=== PATIENT | female | born 1955 | race Caucasian/White ===

== ENCOUNTER 2018-01-05 05:38 | Observation (INO) ==
[2018-01-05] MEDS ORDERED: Metoprolol Tartrate 25 MG Tablet PO SCH (06:30)
[2018-01-05] MEDS ORDERED: Heparin - SQ 10,000 UNITS/ML Vial SQ SCH (06:30)
[2018-01-05] MEDS ORDERED: Chlorhexidine Gluconate 2% 1 Pack (2 Cloths) TOPICAL SCH (06:30)
[2018-01-05] MEDS ORDERED: Sodium Chlor 0.9% Inj 500 ML IV.SIG SCH (07:00)
[2018-01-05] MEDS ORDERED: Sugammadex Inj 200 MG/2 ML Vial IV.PUSH ONE (09:05)
[2018-01-05] MEDS ORDERED: Lidocaine 1%/Epinephrine 1:100,000 Inj 20 ML Vial INFILTRATN ONE ×2 (09:58→10:15)
[2018-01-05] MEDS ORDERED: LORazepam 0.5 MG Tablet PO PRN (10:45)
[2018-01-05] MEDS ORDERED: Morphine Inj 4 MG/ML Vial ONE (11:01)
[2018-01-05] MEDS ORDERED: fentaNYL Citrate Inj 100 MCG/2 ML Ampul ONE ×2 (11:01)
[2018-01-05] MEDS: KCL 20 mEq/D5W/NaCl 0.45% Inj 1,000 ML IV.CONT SCH ×3 (11:10→20:45)
[2018-01-05] MEDS ORDERED: *morphine SULFATE 4 MG/ML PERIprocedure ONLY ONE ×2 (11:16→11:51)
[2018-01-05] MEDS: Ketorolac Inj 30 MG/ML (IVP) Vial IV.PUSH SCH ×3 (11:31→23:44)
--- NOTE | 2018-01-05 12:41 | MP ---
cc: Anitra Lee MD, Zachary S MD Herdel, George DATE OF OPERATION: 01/05/2018 PREOPERATIVE DIAGNOSES: 1. 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 2. Postmenopausal bleeding. POSTOPERATIVE DIAGNOSES: 1. 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 2. Postmenopausal bleeding. PROCEDURE: Robotic-assisted laparoscopic hysterectomy, bilateral salpingo-oophorectomy. SURGEON: Anitra Lee MD CONDUIT HELPER: [place] 1st title assistant ANESTHESIA: General endotracheal anesthesia. ESTIMATED BLOOD LOSS: 150 mL IV FLUID: 1700 mL URINE OUTPUT: 550 mL HISTORY AND INDICATIONS: A 62-year-old female with postmenopausal bleeding, thickened endometrial stripe on ultrasound. Biopsy showed complex atypical hyperplasia bordering on endometrial cancer. She was counseled regarding these findings and presented with options. She is in favor of surgery via minimally invasive techniques and presents now for that endeavor. She is seen again in the preoperative holding area where findings are again a Questions were answered. She expressed good understanding and agreed. FINDINGS: The uterus sounded to 9 cm; grossly appeared normal, grossly the tubes and ovaries appeared normal. There were no obviously enlarged pelvic or periaortic lymph nodes. The peritoneal surfaces were smooth without evidence of peritoneal implants. The uterus, once removed, showed no evidence of invasive cancer. Frozen section of a leather goods sales representative area showed complex atypical hyperplasia, but did not show any obvious cancer. STATEMENT OF COMPLEXITY/MODIFIER: Complexity of this case was increased due to body habitus with a BMI of greater than 40 and modifier should be applied accordingly. DESCRIPTION OF PROCEDURE: She was taken to the operating room and placed in dorsal lithotomy position after general endotracheal anesthesia was administered. A timeout was undertaken. She was identified by site recognition and hospital ID bracelet and the proposed procedure was reviewed and confirmed. She was carefully positioned in padded Eric stirrups. Her arms were padded and secured to the sides. She was further secured to the operating table with egg crate padding and tape in a cross-chest over the shoulder fashion. All sites noted to be properly aligned with no malalignment or pressure points. She was prepped and draped in the usual sterile fashion and placed in the high lithotomy position. The cervix was grasped. Uterine cavity sounded, cervix dilated and a large VCare manipulator was inserted and secured in usual fashion. Carcamo catheter was placed in the bladder. She was returned to low lithotomy position. Change of sterile gloves was undertaken. We completed draping in anticipation of laparoscopy and confirmed that an orogastric tube was in the stomach on suction. On manual elevation of the abdominal wall and direct laparoscopic visualization a 5 mm cannula was introduced into the left upper quadrant in an atraumatic fashion. Carbon dioxide gas was insufflated and a 12 mm cannula was inserted in the midline above the umbilicus, 8 mm cannulas in the right upper quadrant and left lateral quadrant and the original 5 mm cannula exchanged for an 8 mm cannula. She was placed in Trendelenburg position. Peritoneal washings were obtained for cytology. The anatomy was surveyed with findings as described above. The small bowel was folded back on its mesenteric root and 3 Ray-Cyrus sponges were placed around the root of the small bowel mesentery. The robotic system was brought into the operative field and attached in the usual fashion. Monopolar scissors, fenestrated bipolar forceps and ProGrasp manipulators were placed in arms 1, 2, and 3 respectively and I took my place at the surgeon's console. Right round ligament was isolated, cauterized and transected. The anterior and posterior leaf of the broad ligament were opened. The right ureter was identified. The right infundibulopelvic ligament was isolated. The intervening peritoneum was opened. The infundibulopelvic ligament was isolated to the level of the pelvic brim where it was cauterized and transected. The posterior peritoneum was opened on the right side of the uterus and cervix and the right vesicouterine peritoneum dissected off the lower uterine segment and cervix. The right uterine vessels were skeletonized, cauterized and transected as were the cardinal, paracervical and uterosacral ligaments. Attention was directed toward the left side. Adhesions were taken down where the colon was adherent to the left pelvic sidewall. The left round ligament was isolated, cauterized, transected. The anterior and posterior leaves of the broad ligament were opened. The left ureter was identified. The left infundibulopelvic ligament was isolated to the level of the pelvic brim where it was cauterized and transected. Posterior peritoneum opened along the left side of the uterus and cervix and the left vesicouterine peritoneum dissected off the lower uterine segment and cervix. The left uterine vessels were skeletonized, cauterized and transected as were the cardinal, paracervical and uterosacral ligaments. Circumferential colpotomy was performed, the cervix from the upper vagina and the specimen was withdrawn transvaginally which included uterus, cervix, tubes and ovaries and a Pneumo-Occluder balloon was placed into the vagina to maintain pneumoperitoneum. Instruments 1 and 3 exchanged for needle drivers as an 0-Vicryl suture was introduced. The vaginal cuff was closed starting at the left corner; full-thickness closure, incorporating the edge of the uterosacral ligament and posterior peritoneum; tied via instrument tie. The running closure was held as a full-thickness running continuous closure was carried across the vaginal apex to the contralateral corner where it was similarly fixed, tied and secured. The needle was cut and removed. There was a good margin between the vaginal cuff and the bladder edge. Good peristalsis of ureters bilaterally. The pathology came back showing no invasive cancer and it was felt that all reasonable surgical objectives had been completed. The pelvis was thoroughly irrigated. Small bleeders rendered hemostatic with bipolar cautery. Randall hemostatic powder was placed across the vaginal cuff and at the lateral pelvic sidewalls. The robotic instruments were removed. The robotic system was disengaged from the operative field. I reentered the bedside under sterile condition. Each of the 3 Ray-Cyrus sponges were removed through the 12 mm cannula. They were removed individually and inspected, and noted to be removed in their entirety. Visual inspection confirmed there were no remaining foreign objects in the peritoneal cavity and preliminary counts were correct. The 12 mm cannula removed. The fascia was closed with interrupted 0-Vicryl sutures, which were tied securely, ____ the fascia completely air tight and hemostatic. The remaining cannulas were withdrawn. Carbon dioxide gas was removed; 3-0 Vicryl subcutaneous, 3-0 Vicryl subcuticular were used to close these incisions and Steri-Strips were placed over these incisions. She was returned to the dorsal lithotomy position. The vaginal cuff was well supported. There was a proximal vaginal laceration at the right corner of the vagina, which was rendered hemostatic and reapproximated with interrupted [id number] 2-0 Vicryl sutures. The vagina was irrigated, again inspected and noted to be hemostatic and to assist in continued hemostasis, Surgicel SNoW was packed across the vaginal cuff and upper vagina. She was returned to dorsal supine position. The preliminary and final counts were correct. She was pending reversal of anesthesia when I left the operating room to precede her to the postanesthesia care unit. MD ANASTACIO Paula/jess/santos , 11:45 AM , 12:00 PM SUGAR
[2018-01-05] MEDS ORDERED: Phenylephrine/NS 1000 MCG/10ML Syringe IV.PUSH ONE (14:41)
[2018-01-05] MEDS ORDERED: Sod Chloride 0.9% Inj 1,000 ML IV.SIG ONE (14:41)
[2018-01-05] MEDS ORDERED: Lidocaine PF 1% Inj 5 ML Syringe INFILTRATN ONE (14:41)
[2018-01-05] MEDS ORDERED: Glycopyrrolate Inj 1 MG/5 ML Syringe IV.PUSH ONE (14:41)
[2018-01-06] MEDS: Ketorolac Inj 30 MG/ML (IVP) Vial IV.PUSH SCH (06:22)
[2018-01-06 06:23] LABS: Baso % (Auto) 0.1 % (0.0-2.0); Eos % (Auto) 0.1 % (0.0-4.0); Hematocrit 38.5 % (35.0-46.0); Hemoglobin 12.7 gm/dL (11.6-15.3); Lymph # (Auto) 1.1 th/mm3 (1.0-4.8); Lymph % (Auto) 8.1 % (9.0-44.0); Mean Corpuscular HGB Conc 32.9 % (32.0-36.0); Mean Corpuscular Hemoglobin 30.6 pg (27.0-34.0); Mean Platelet Volume 8.7 fL (7.0-11.0); Mono # (Auto) 0.9 th/mm3 (0.0-0.9); Mono % (Auto) 6.3 % (0.0-8.0); Neut # (Auto) 11.6 th/mm3 (1.8-7.7); Neut % (Auto) 85.4 % (16.0-70.0); Platelet Count 227 th/mm3 (150-450); Red Blood Count 4.14 mil/mm3 (4.00-5.30); White Blood Count 13.6 th/mm3 (4.0-11.0)
[2018-01-06] MEDS: KCL 20 mEq/D5W/NaCl 0.45% Inj 1,000 ML IV.CONT SCH (06:40)
[2018-01-06 06:42] LABS: Calcium 7.9 mg/dL (8.5-10.1); Carbon Dioxide 27.7 meq/L (21.0-32.0)
[2018-01-06] MEDS ORDERED: Allopurinol 300 MG Tablet PO SCH (09:00)
--- NOTE | 2018-01-06 15:02 | MD ---
cc: Anitra Lee MD, George DATE OF DISCHARGE: PROCEDURE: On 01/05/2018, robotic-assisted laparoscopic hysterectomy, bilateral salpingo-oophorectomy. DIAGNOSIS: Complex atypical endometrial hyperplasia/grade 1 endometrial cancer. HOSPITAL COURSE: She did well in the early postop period; was hemodynamically stable, tolerating oral intake. Carcamo catheter removed pending voiding. Ins and outs: 6340/3075. LABORATORY DATA: Pending. PHYSICAL EXAMINATION: VITAL SIGNS: Afebrile, pulse 72, respirations 16, blood pressure 139/69, O2 saturations 96%, alert and oriented x3. LUNGS: Clear. CARDIOVASCULAR: Regular rate and rhythm. ABDOMEN: Soft. Incisions clean and dry. GYNECOLOGIC: No bleeding. ASSESSMENT: Postoperative day number 1, doing well in the early postop period. Findings at the time of surgery with preliminary pathology reviewed, activities and restrictions discussed. Questions were asked and answered. She expressed good understanding. PLAN: I anticipate she will meet criteria for discharge to home today. She is to contact our office to schedule a followup in 2 weeks. She is to resume prior medications. She will have a prescription for Percocet for pain and she is to contact our office should she have any questions or problems between now and the time of scheduled followup MD ANASTACIO Paula/jess/santos , 06:21 AM , 06:27 AM
== END 2018-01-06 14:42 | disposition home or self-care (01) ==
LOC: HSDI 05:38 → HSDC 05:38 → HCIS 12:51
PROVIDERS: ADMIT Obstetrics & Gynecology Gynecologic Oncology; ATTEND Obstetrics & Gynecology Gynecologic Oncology